=== PATIENT | female | born 1995 | race Caucasian/White ===

== ENCOUNTER 2016-10-18 09:50 | Emergency (ER) | payer BC ==
[2016-10-18] MEDS ORDERED: Amoxicillin/Clavulanate TAB* 875 MG PO ONE (12:48)
[2016-10-18] MEDS ORDERED: Ketorolac INJ* 60 MG/2 ML VIAL IM ONE (12:49)
--- NOTE | 2016-10-18 12:55 | ED ---
Upper Extremity Pain - HPI Summary HPI Summary: Pt here w/ dog bite injury to Rt forearm around 9:00 this morning. Was playing with her 130lb [place] who grabbed her forearm in his moth instead of the stick pt was throwing. She has punture wound on ventral and dorsal sides of arm, worse on ventral aspect. Has pain and swelling/tightness in forearm and numbness in all fingers - moving well but has pain w/ gripping in forearm. Imms are UTD for dog and pt. She has done nothing to wound nor taken anything for pain prior to arrival. Male partner is w/ her and reports he was also bitten by dog. Dog is a rescue and they are discussing returning him for safety reasons. - History of Current Complaint Chief Complaint: EDAnimalBite Stated Complaint: DOG BITE Time Seen by Provider: 10/18/16 10:57 Hx Obtained From: Patient, Family/Front Office Director - male partner - Allergies/Home Medications Allergies/Adverse Reactions: Allergies Allergy/AdvReac Type Severity Reaction Status Date / Time Sulfa Antibiotics Allergy Rash Verified 10/18/16 09:53 PMH/Surg Hx/FS Hx/Imm Hx Previously Healthy: Yes Endocrine/Hematology History: Denies: Hx Anticoagulant Therapy, Hx Blood Disorders, Autoimmune Disease Cardiovascular History: Reports: Hx Hypertension - lisinopril - Immunization History Immunizations Up to Date: Yes Infectious Disease History: No Infectious Disease History: Denies: Hx of Known/Suspected MRSA, Traveled Outside the [place] in Last 30 Days - Family History Known Family History: Positive: Cardiac Disease, Diabetes - Social History Occupation: Employed Full-time - [employer] Lives: With Family Alcohol Use: Occasionally Hx Substance Use: No Substance Use Type: Reports: None Hx Tobacco Use: No Smoking Status (MU): Never Smoked Tobacco Review of Systems Constitutional: Negative Positive: no symptoms reported Musculoskeletal: Other - see HPI Skin: Other - see HPI Neurological: Other - see HPI Psychological: Normal All Other Systems Reviewed And Are Negative: Yes Physical Exam Triage Information Reviewed: Yes Vital Signs On Initial Exam: Initial Vitals Temp Pulse Resp BP Pulse Ox 98.3 F 89 20 149/95 98 10/18/16 09:53 10/18/16 09:53 10/18/16 09:53 10/18/16 09:53 10/18/16 09:53 Vital Signs Reviewed: Yes Appearance: Positive: Well-Appearing, Pain Distress - mild to moderate, Obese Skin: Positive: Warm - punture wounds over Rt forearm (ventral and dorsal aspect ) - other superficial abrasions over dorsal aspect as well; tissue is edematous ; no active bleeding Head/Face: Positive: Normal Head/Face Inspection Eyes: Positive: Normal ENT: Positive: Hearing grossly normal Respiratory/Lung Sounds: Positive: Breath Sounds Present Cardiovascular: Positive: Pulses are Symmetrical in both Upper and Lower Extremities Musculoskeletal: Positive: Strength/ROM Intact, Pain @ - as in HPI Neurological: Positive: Normal, Sensory/Motor Intact - pt can feel gross touch of phalanges, hand and forearm - affected area is TTP, Alert, Oriented to Person Place, Time, CN Intact II-III, Reflexes Intact Psychiatric: Positive: Normal Diagnostics - Vital Signs Vital Signs Temp Pulse Resp BP Pulse Ox 10/18/16 11:15 97.9 F 88 17 135/81 100 10/18/16 09:53 98.3 F 89 20 149/95 98 - Laboratory Diagnostic Studies Comment: radiology report reviewed: no fx, no FB on XR Rt forearm Lab Statement: Any lab studies that have been ordered have been reviewed, and results considered in the medical decision making process. Course/Dx - Diagnoses Provider Diagnoses: Dog bite of right arm Discharge - Discharge Plan Condition: Stable Disposition: HOME Prescriptions: Amoxicillin/Clavulanate TAB* [Augmentin TAB 875*] 875 mg PO BID #19 tab Patient Education Materials: Animal Bite (ED), Contusion in Adults (ED) Forms: *Work Release Referrals: Kiel Mendoza MD [Medical Doctor] - Additional Instructions: Rest, ice, elevate and compress with ZAY wrap Soak arm in soapy water 3-5 x day to allow wounds to remain open, stay clean, drain Complete antibiotics as directed You may take norco as needed for pain - ibuprofen should be avoided as you have high blood pressure and take lisinopril Follow-up with orthopedics in 2-3 days - call today to schedule an appointment. *If you develop severe swelling, redness, purulent drainage, streaking, fever, chills, stiffness of elbow, wrist, fingers, return to ED
--- NOTE | 2016-10-18 13:41 | RAD ---
Indication: Anterior and posterior RIGHT forearm pain following dog bite. Comparison: No relevant prior exams available on the [facility] PACS for comparison. Technique: AP and lateral views RIGHT radius and ulna. Report: Mild dorsal subcutaneous edema. No conspicuous foreign body or subcutaneous emphysema evident. Negative for fracture or malalignment. IMPRESSION: Mild dorsal soft tissue edema without additional finding.
[2016-10-18 15:13] VITALS: BP 132/75
== END 2016-10-18 14:44 | disposition home or self-care (01) ==
LOC: ED 09:50
DX: S51.851A Open bite of right forearm, initial encounter (principal); W54.0XXA Bitten by dog, initial encounter; Y92.9 Unspecified place or not applicable; I10 Essential (primary) hypertension
CPT/HCPCS: 96372; 99282; A9270-GY; J1885

== ENCOUNTER → 2016-12-18 14:04 | Emergency (ER) | payer BC ==
[~2016-12-18 14:04] MED LIST: Amoxicillin/Clavulanate TAB* 875 MG PO ONE; NS 0.9% 1000 ML* 1,000 ML IV SCH
[2016-12-18 15:01] LABS: Hematocrit 42 % (35-47); Hemoglobin 14.3 g/dl (12.0-16.0); Mean Corpuscular HGB Conc 34 g/dl (31-36); Mean Corpuscular Hemoglobin 28 pg (27-31); Mean Corpuscular Volume 83 fL (80-97); Mean Platelet Volume 7 um3 (7.4-10.4); Red Blood Count 5.09 10^6/ul (4.0-5.4); Red Cell Distribution Width 14 % (10.5-15); White Blood Count 18.6 10^3/ul (3.5-10.8)
[2016-12-18 15:06] LABS: Add Diff/Slide Review? Slide Review Added; Comments Flag Yes
[2016-12-18 15:23] LABS: ALT 10 U/L (7-52); AST 13 U/L (13-39); Albumin 4.1 g/dL (3.2-5.2); Alkaline Phosphatase 63 U/L (34-104); Anion Gap 9 mmol/L (2-11); BUN/Creatinine Ratio 13.6 (8-20); Blood Urea Nitrogen 9 mg/dL (6-24); C Reactive Protein 45.54 mg/L (< 5.00); CO2 Carbon Dioxide 23 mmol/L (22-32); Calcium 9.8 mg/dL (8.6-10.3); Chloride 102 mmol/L (101-111); EGFR African American 142.7 (>60); Globulin 4.1 g/dL (2-4); Glucose 90 mg/dL (70-100); Lipase 16 U/L (11.0-82.0); Potassium 3.5 mmol/L (3.5-5.0); Sodium 134 mmol/L (133-145); Total Protein 8.2 g/dL (6.4-8.9)
--- NOTE | 2016-12-18 16:36 | RAD ---
HISTORY: Productive cough COMPARISONS: None VIEWS: 4: Frontal dual-energy and lateral views of the chest. FINDINGS: CARDIOMEDIASTINAL SILHOUETTE: The cardiomediastinal silhouette is normal. GUILLAUME: The guillaume are normal. PLEURA: The costophrenic angles are sharp. No pleural abnormalities are noted. LUNG PARENCHYMA: The lungs are clear. ABDOMEN: The upper abdomen is clear. There is no subphrenic gas. BONES AND SOFT TISSUES: No bone or soft tissue abnormalities are noted. OTHER: None. IMPRESSION: NO ACTIVE CARDIOPULMONARY DISEASE.
[2016-12-18 17:21] VITALS: BP 107/55
--- NOTE | 2016-12-18 18:55 | ED ---
Frandy Lugo Angela, scribed for Kimo Clark MD on 12/18/16 at 1615 . Complex/Multi-Sys Presentation - HPI Summary HPI Summary: This pt is a 21 y/o female presenting to [facility] c/o sudden onset of sore throat, cough, runny nose, nose congestion, and post nasal drip since yesterday. Pt additionally c/o fever, chills, nausea and vomiting today. She describes her cough as productive. She denies SOB, abd pain, chest pain. Pt notes that she took Nyquil yesterday with no relief. PMHx includes asthma and HTN. - History Of Current Complaint Chief Complaint: EDGeneral Time Seen by Provider: 12/18/16 16:03 Hx Obtained From: Patient Onset/Duration: Sudden Onset, Lasting Days - 1 Timing: Days - 1 Associated Signs And Symptoms: Positive: Cough - productive, Nausea, Vomiting, Fever, Other - runny nose, sore throat, nose congestion, post nasal drip.. Negative: Chest Pain, Abdominal Pain - Allergies/Home Medications Allergies/Adverse Reactions: Allergies Allergy/AdvReac Type Severity Reaction Status Date / Time Sulfa Antibiotics Allergy Rash Verified 10/18/16 09:53 PMH/Surg Hx/FS Hx/Imm Hx Endocrine/Hematology History: Denies: Hx Anticoagulant Therapy, Hx Blood Disorders Cardiovascular History: Reports: Hx Hypertension - lisinopril Infectious Disease History: No Infectious Disease History: Denies: Hx of Known/Suspected MRSA, Traveled Outside the US in Last 30 Days - Family History Known Family History: Positive: Cardiac Disease, Diabetes - Social History Alcohol Use: Occasionally Hx Substance Use: No Substance Use Type: Reports: None Hx Tobacco Use: No Smoking Status (MU): Never Smoked Tobacco Review of Systems Positive: Fever, Chills Positive: Sore Throat, Other - runny nose, nose congestion, post nasal drip Positive: Cough - productive. Negative: Shortness Of Breath Positive: Vomiting, Nausea. Negative: Abdominal Pain All Other Systems Reviewed And Are Negative: Yes Physical Exam - Summary Physical Exam Summary: VITAL SIGNS: Reviewed. GENERAL: Patient is a morbidly obese female who is lying comfortable in the stretcher. Patient is not in any acute respiratory distress. HEAD AND FACE: No signs of trauma. No ecchymosis, hematomas or skull depressions. There is sinus tenderness, nasal congestion. EYES: PERRLA, EOMI x 2, No injected conjunctiva, no nystagmus. EARS: Hearing grossly intact. Ear canals and tympanic membranes are within normal limits. MOUTH: Oropharynx within normal limits. NECK: Supple, trachea is midline, no adenopathy, no JVD, no carotid bruit, no c- spine tenderness, neck with full ROM. CHEST: Symmetric, no tenderness at palpation LUNGS: There are coarse breath sounds bilaterally. CVS: Regular rate and rhythm, S1 and S2 present, no murmurs or gallops appreciated. ABDOMEN: Soft, non-tender. No signs of distention. No rebound no guarding, and no masses palpated. Bowel sounds are normal. EXTREMITIES: FROM in all major joints, no edema, no cyanosis or clubbing. NEURO: Alert and oriented x 3. No acute neurological deficits. Speech is normal and follows commands. SKIN: Dry and warm Triage Information Reviewed: Yes Vital Signs On Initial Exam: Initial Vitals Temp Pulse Resp BP Pulse Ox 98.4 F 119 20 155/103 97 12/18/16 14:05 12/18/16 14:05 12/18/16 14:05 12/18/16 14:05 12/18/16 14:05 Vital Signs Reviewed: Yes - Maura Coma Scale Coma Scale Total: 15 Diagnostics - Vital Signs Vital Signs Temp Pulse Resp BP Pulse Ox 12/18/16 14:30 121 140/91 96 12/18/16 14:05 98.4 F 119 20 155/103 97 - Laboratory Lab Results: Lab Results 12/18/16 12/18/16 12/18/16 Range/Units 14:46 14:46 14:46 WBC 18.6 H (3.5-10.8) 10^3/ul RBC 5.09 (4.0-5.4) 10^6/ul Hgb 14.3 (12.0-16.0) g/dl Hct 42 (35-47) % MCV 83 (80-97) fL MCH 28 (27-31) pg MCHC 34 (31-36) g/dl RDW 14 (10.5-15) % Plt Count 321 (150-450) 10^3/ul MPV 7 L (7.4-10.4) um3 Neut % (Auto) 82.8 (38-83) % Lymph % (Auto) 7.6 L (25-47) % [place] % (Auto) 8.9 (1-9) % Eos % (Auto) 0.4 (0-6) % Baso % (Auto) 0.3 (0-2) % Absolute Neuts (auto) 15.4 H (1.5-7.7) 10^3/ul Absolute Lymphs (auto) 1.4 (1.0-4.8) 10^3/ul Absolute Monos (auto) 1.7 H (0-0.8) 10^3/ul Absolute Eos (auto) 0.1 (0-0.6) 10^3/ul Absolute Basos (auto) 0.1 (0-0.2) 10^3/ul Absolute Nucleated RBC 0.01 10^3/ul Nucleated RBC % 0 APTT 29.3 (26.0-36.3) seconds Sodium 134 (133-145) mmol/L Potassium 3.5 (3.5-5.0) mmol/L Chloride 102 (101-111) mmol/L Carbon Dioxide 23 (22-32) mmol/L Anion Gap 9 (2-11) mmol/L BUN 9 (6-24) mg/dL Creatinine 0.66 (0.51-0.95) mg/dL Est GFR ( Amer) 142.7 (>60) Est GFR (Non-Af Amer) 111.0 (>60) BUN/Creatinine Ratio 13.6 (8-20) Glucose 90 (70-100) mg/dL Lactic Acid (0.5-2.0) mmol/L Calcium 9.8 (8.6-10.3) mg/dL Total Bilirubin 0.50 (0.2-1.0) mg/dL AST 13 (13-39) U/L ALT 10 (7-52) U/L Alkaline Phosphatase 63 (34-104) U/L C-Reactive Protein 45.54 H (< 5.00) mg/L Total Protein 8.2 (6.4-8.9) g/dL Albumin 4.1 (3.2-5.2) g/dL Globulin 4.1 H (2-4) g/dL Albumin/Globulin Ratio 1.0 (1-3) Lipase 16 (11.0-82.0) U/L Beta HCG, Quant < 0.60 mIU/mL 12/18/16 Range/Units 14:46 WBC (3.5-10.8) 10^3/ul RBC (4.0-5.4) 10^6/ul Hgb (12.0-16.0) g/dl Hct (35-47) % MCV (80-97) fL MCH (27-31) pg MCHC (31-36) g/dl RDW (10.5-15) % Plt Count (150-450) 10^3/ul MPV (7.4-10.4) um3 Neut % (Auto) (38-83) % Lymph % (Auto) (25-47) % [place] % (Auto) (1-9) % Eos % (Auto) (0-6) % Baso % (Auto) (0-2) % Absolute Neuts (auto) (1.5-7.7) 10^3/ul Absolute Lymphs (auto) (1.0-4.8) 10^3/ul Absolute Monos (auto) (0-0.8) 10^3/ul Absolute Eos (auto) (0-0.6) 10^3/ul Absolute Basos (auto) (0-0.2) 10^3/ul Absolute Nucleated RBC 10^3/ul Nucleated RBC % APTT (26.0-36.3) seconds Sodium (133-145) mmol/L Potassium (3.5-5.0) mmol/L Chloride (101-111) mmol/L Carbon Dioxide (22-32) mmol/L Anion Gap (2-11) mmol/L BUN (6-24) mg/dL Creatinine (0.51-0.95) mg/dL Est GFR ( Amer) (>60) Est GFR (Non-Af Amer) (>60) BUN/Creatinine Ratio (8-20) Glucose (70-100) mg/dL Lactic Acid 0.9 (0.5-2.0) mmol/L Calcium (8.6-10.3) mg/dL Total Bilirubin (0.2-1.0) mg/dL AST (13-39) U/L ALT (7-52) U/L Alkaline Phosphatase (34-104) U/L C-Reactive Protein (< 5.00) mg/L Total Protein (6.4-8.9) g/dL Albumin (3.2-5.2) g/dL Globulin (2-4) g/dL Albumin/Globulin Ratio (1-3) Lipase (11.0-82.0) U/L Beta HCG, Quant mIU/mL Result Diagrams: 12/18/16 14:46 12/18/16 14:46 Lab Statement: Any lab studies that have been ordered have been reviewed, and results considered in the medical decision making process. - Radiology Chest XR Xray Interpretation: No Acute Changes - IMPRESSION: No active cardiopulmonary disease. ED physician has reviewed this radiology report and agrees. Radiology Interpretation Completed By: Radiologist Re-Evaluation - Re-Evaluation First Eval Re-Evaluation Time: 16:52 Comment: I discussed the lab and XR results with the pt. Complex Multi-Symp Course/Dx Assessment/Plan: This pt is a 21 y/o female presenting to [facility] c/o sudden onset of sore throat, cough, runny nose, nose congestion, and post nasal drip since yesterday. Pt additionally c/o fever, chills, nausea and vomiting today. She describes her cough as productive. She denies SOB, abd pain, chest pain. Pt notes that she took Nyquil yesterday with no relief. PMHx includes asthma and HTN. Test results show WBC of 18.6, CRP of 45.4. Influenza A and B, and rapid strep test is negative. The pt seems to have a lot of post nasal drip and nasal congestion. Therefore, I believe the pt has an acute sinusitis. She will be given a prescription for Augmentin for 10 days. She already has Flonase and will start using it. Pt is hemodynamically stable, alert and oriented x3. - Diagnoses Differential Diagnoses/HQI/PQRI: Other - URI, Asthma, bronchitis, Sinusitis Provider Diagnoses: Acute sinusitis Discharge - Discharge Plan Condition: Stable Disposition: HOME Prescriptions: Amoxicillin/Clavulanate TAB* [Augmentin TAB 875*] 875 mg PO BID #19 tab Patient Education Materials: Sinusitis (ED) Referrals: Sahil Bradford MD [Primary Care Provider] - Additional Instructions: Please follow up with your primary care provider. RETURN TO THE ED FOR ANY WORSENING SYMPTOMS. The documentation as recorded by the Frandy russell Angela accurately reflects the service I personally performed and the decisions made by me, Kimo Clark MD.
== END | disposition home or self-care (01) ==
LOC: ED 14:04
DX: J01.90 Acute sinusitis, unspecified (principal); R05 Cough; R11.2 Nausea with vomiting, unspecified; J02.9 Acute pharyngitis, unspecified
CPT/HCPCS: 36415; 71020; 80053; 83605; 83690; 84702; 85025; 85730; 86140; 87502; 87651; 99283; A9270-GY

== ENCOUNTER 2017-05-03 14:05 | Emergency (ER) | payer BC ==
[2017-05-03 16:30] LABS: ABS Basophils 0.1 10^3/ul (0-0.2); ABS Eosinophils 0.1 10^3/ul (0-0.6); ABS Lymphocytes 1.9 10^3/ul (1.0-4.8); ABS Monocytes 1.2 10^3/ul (0-0.8); ABS Neutrophils 16.1 10^3/ul (1.5-7.7); ABS Nucleated RBC 0 10^3/ul; Eosinophil % 0.5 % (0-6); Hematocrit 41 % (35-47); Hemoglobin 13.9 g/dl (12.0-16.0); Lymphocyte % 9.7 % (25-47); Mean Corpuscular HGB Conc 34 g/dl (31-36); Mean Corpuscular Hemoglobin 28 pg (27-31); Mean Corpuscular Volume 83 fL (80-97); Mean Platelet Volume 7 um3 (7.4-10.4); Nucleated Red Blood Cells % 0.2; Platelet Count 342 10^3/ul (150-450); Red Blood Count 4.95 10^6/ul (4.0-5.4); Red Cell Distribution Width 15 % (10.5-15); White Blood Count 19.3 10^3/ul (3.5-10.8)
[2017-05-03] MEDS ORDERED: Acetaminophen TAB* 325 MG PO ONE (16:30)
[2017-05-03] MEDS ORDERED: oxyCODONE TAB* 5 MG TAB PO ONE (18:01)
--- NOTE | 2017-05-03 18:42 | RAD ---
INDICATION: Left flank abdominal pain. COMPARISON: There are no prior studies available for comparison. TECHNIQUE: A CT scan of the abdomen and pelvis was performed without intravenous or oral contrast. Contiguous axial sections were obtained from the lung bases through the symphysis pubis. Images were reconstructed in the coronal and sagittal planes. FINDINGS: There is mild atelectasis in the right middle lobe. No pleural effusion is present. The liver and spleen are normal in size. The liver is mildly decreased in density consistent with fatty infiltration. No calcified gallstones are seen. The pancreas appears to be within normal limits. The adrenal glands and kidneys are normal in size. No renal calculi or hydronephrosis is seen. No ureteral or bladder calculi are seen. The aorta is normal in caliber without significant calcific plaque. No significant enlarged retroperitoneal lymph nodes are seen. The stomach, small and large bowel appear nondistended. The appendix is within normal limits. There are scattered diverticuli within the colon which are moderate in degree in the descending and sigmoid colon. There is mild interstitial stranding adjacent to the proximal sigmoid colon. No colon wall thickening is seen. This is a nonspecific finding although suggestive of epiploic appendagitis . There is a small periumbilical hernia containing fat. No significant focal osseous abnormality is seen. IMPRESSION: FINDINGS SUGGESTIVE OF EPIPLOIC APPENDAGITIS ADJACENT TO THE PROXIMAL SIGMOID COLON MUCH LESS LIKELY DIVERTICULITIS.
[2017-05-03 20:05] VITALS: BP 120/71
--- NOTE | 2017-05-03 20:16 | ED ---
Cari Lugo Julia, scribed for Juan Pearl MD on 05/03/17 at 1628 . HPI Chest Pain - HPI Summary HPI Summary: This patient is a 21 year old F presenting to [facility] with a chief complaint of left chest spasms beginning this morning. Patient reports left sided abdominal pain for the past four days with increased BM frequency. Patient denies SOB, diarrhea, and urinary symptoms. The patient rates the pain 8/10 in severity. Symptoms aggravated by deep breaths. Patient reports similar symptoms a couple months ago. - History of Current Complaint Chief Complaint: EDChestPainROMI Time Seen by Provider: 05/03/17 16:14 Hx Obtained From: Patient Onset/Duration: Started Hours Ago Timing: Constant Pain Intensity: 8 Pain Scale Used: 0-10 Numeric Chest Pain Location: Left Anterior Character: Other: - "spasms" Associated Signs and Symptoms: Positive: Abdominal Pain - with BM frequency, Other: - negative diarrhea and urinary symptoms. Negative: Shortness of Breath - Allergy/Home Medications Allergies/Adverse Reactions: Allergies Allergy/AdvReac Type Severity Reaction Status Date / Time Sulfa (Sulfonamide Allergy Rash And Verified 05/03/17 16:22 Antibiotics) Itching PMH/Surg Hx/FS Hx/Imm Hx Endocrine/Hematology History: Denies: Hx Anticoagulant Therapy, Hx Blood Disorders Cardiovascular History: Reports: Hx Hypertension - lisinopril Respiratory History: Reports: Hx Asthma Infectious Disease History: No Infectious Disease History: Denies: Hx of Known/Suspected MRSA, Traveled Outside the [place] in Last 30 Days - Family History Known Family History: Positive: Cardiac Disease, Diabetes, Other - "heart aneurysm" - sister - Social History Alcohol Use: Occasionally Hx Substance Use: No Substance Use Type: Reports: None Hx Tobacco Use: No Smoking Status (MU): Never Smoked Tobacco Review of Systems Positive: Chest Pain Negative: Shortness Of Breath Positive: Other - increased BM frequency. Negative: Diarrhea Positive: no symptoms reported All Other Systems Reviewed And Are Negative: Yes Physical Exam - Summary Physical Exam Summary: Appearance: The patient is well-nourished in no acute distress and in no acute pain. Skin: The skin is warm and dry and skin color reflects adequate perfusion. HEENT: The head is normocephalic and atraumatic. The pupils are equal and reactive. The conjunctivae are clear and without drainage. Nares are patent and without drainage. Mouth reveals moist mucous membranes and the throat is without erythema and exudate. The external ears are intact. The ear canals are patent and without drainage. The tympanic membranes are intact. Neck: the neck is supple with full range of motion and non-tender. There are no carotid bruits. There is no neck vein distension. Respiratory: Chest is non-tender. Lungs are clear to auscultation and breath sounds are symmetrical and equal. Cardiovascular: Heart is regular rate and rhythm. There is no murmur or rub auscultated. There is no peripheral edema and pulses are symmetrical and equal. Abdomen: The abdomen is soft with LUQ and LLQ tenderness. There are normal bowel sounds heard in all four quadrants and there is no organomegaly palpated. Musculoskeletal: There is no back tenderness noted. Extremities are non-tender with full range of motion. There is good capillary refill. There is no peripheral edema or calf tenderness elicited. Neurological: Patient is alert and oriented to person, place and time. The patient has symmetrical motor strength in all four extremities. Cranial nerves are grossly intact. Deep tendon reflexes are symmetrical and equal in all four extremities. Psychiatric: The patient has an appropriate affect and does not exhibit any anxiety or depression. Triage Information Reviewed: Yes Vital Signs On Initial Exam: Initial Vitals Temp Pulse Resp BP Pulse Ox 98.4 F 118 20 150/93 99 05/03/17 14:08 05/03/17 14:08 05/03/17 14:08 05/03/17 14:08 05/03/17 14:08 Vital Signs Reviewed: Yes Diagnostics - Vital Signs Vital Signs Temp Pulse Resp BP Pulse Ox 05/03/17 14:08 98.4 F 118 20 150/93 99 - Laboratory Lab Results: Lab Results 05/03/17 05/03/17 05/03/17 Range/Units 16:15 16:15 16:15 WBC 19.3 H (3.5-10.8) 10^3/ul RBC 4.95 (4.0-5.4) 10^6/ul Hgb 13.9 (12.0-16.0) g/dl Hct 41 (35-47) % MCV 83 (80-97) fL MCH 28 (27-31) pg MCHC 34 (31-36) g/dl RDW 15 (10.5-15) % Plt Count 342 (150-450) 10^3/ul MPV 7 L (7.4-10.4) um3 Neut % (Auto) 83.3 H (38-83) % Lymph % (Auto) 9.7 L (25-47) % [place] % (Auto) 6.1 (0-7) % Eos % (Auto) 0.5 (0-6) % Baso % (Auto) 0.4 (0-2) % Absolute Neuts (auto) 16.1 H (1.5-7.7) 10^3/ul Absolute Lymphs (auto) 1.9 (1.0-4.8) 10^3/ul Absolute Monos (auto) 1.2 H (0-0.8) 10^3/ul Absolute Eos (auto) 0.1 (0-0.6) 10^3/ul Absolute Basos (auto) 0.1 (0-0.2) 10^3/ul Absolute Nucleated RBC 0 10^3/ul Nucleated RBC % 0.2 Sodium 134 (133-145) mmol/L Potassium 3.5 (3.5-5.0) mmol/L Chloride 100 L (101-111) mmol/L Carbon Dioxide 25 (22-32) mmol/L Anion Gap 9 (2-11) mmol/L BUN 12 (6-24) mg/dL Creatinine 0.66 (0.51-0.95) mg/dL Est GFR ( Amer) 142.7 (>60) Est GFR (Non-Af Amer) 111.0 (>60) BUN/Creatinine Ratio 18.2 (8-20) Glucose 86 (70-100) mg/dL Lactic Acid 0.8 (0.5-2.0) mmol/L Calcium 10.0 (8.6-10.3) mg/dL Total Bilirubin 0.30 (0.2-1.0) mg/dL AST 10 L (13-39) U/L ALT 9 (7-52) U/L Alkaline Phosphatase 65 (34-104) U/L Troponin I 0.00 (<0.04) ng/mL Total Protein 8.2 (6.4-8.9) g/dL Albumin 4.1 (3.2-5.2) g/dL Globulin 4.1 H (2-4) g/dL Albumin/Globulin Ratio 1.0 (1-3) Beta HCG, Quant < 0.60 mIU/mL Result Diagrams: 05/03/17 16:15 05/03/17 16:15 Lab Statement: Any lab studies that have been ordered have been reviewed, and results considered in the medical decision making process. - CT A/P CT Interpretation Completed By: Radiologist - FINDINGS SUGGESTIVE OF EPIPLOIC APPENDAGITIS ADJACENT TO THE PROXIMAL SIGMOID COLON MUCH LESS LIKELY DIVERTICULITIS. ED Physician has reviewd this report. - EKG 1414 Cardiac Rate: Tachycardia - at 116 BPM EKG Rhythm: Sinus Rhythm Chest Pain Course/Dx - Course Course Of Treatment: Ms. Mathew presented with abdominal pain of a couple days duration. She was treated symptomatically and was found to have a significant leukocytosis. A CT was obtained and showed epiploic appendagitis. I will treat her symptomatically. - Diagnoses Provider Diagnoses: Epiploic appendagitis Discharge - Discharge Plan Condition: Stable Disposition: HOME Prescriptions: HYDROcodone/ACETAMIN 5-325 MG* [Elliston 5-325 TAB*] 1 tab PO Q6H PRN #20 tab MDD 4 PRN Reason: Pain Patient Education Materials: Acute Abdominal Pain (ED) Referrals: Sahil Bradford MD [Primary Care Provider] - Additional Instructions: Epiploic appendagitis Epiploic appendagitis (also known as appendicitis epiploica, hemorrhagic epiploitis, epiplopericolitis, or appendagitis) is a benign and self-limited condition of the epiploic appendages. Patients with epiploic appendagitis most commonly present with acute or subacute onset of lower abdominal pain. The pain is on the left side in 60 to 80 percent of patients, but has also been reported in the right lower quadrant. (See " Epiploic appendagitis".) The documentation as recorded by the Cari russell Julia accurately reflects the service I personally performed and the decisions made by me, Juan Pearl MD.
--- NOTE | 2017-05-04 17:02 | ED ---
Progress - Progress Note Progress Note: ED MD NOTE AFTER DISCHARGE: Pt needs an urgent RX pharmacy, so [facility] RX is cancelled by me with Laz, the pharmacist at [facility], and RX for hydrocodone #20 is sent to [facility] in [place]. Raphael MACK MD 05/04/17 1710pm. Course/Dx - Course Course Of Treatment: Ms. Mathew presented with abdominal pain of a couple days duration. She was treated symptomatically and was found to have a significant leukocytosis. A CT was obtained and showed epiploic appendagitis. I will treat her symptomatically. - Diagnoses Provider Diagnoses: Epiploic appendagitis
== END 2017-05-03 20:12 | disposition home or self-care (01) ==
LOC: ED 14:05
DX: K63.89 Other specified diseases of intestine (principal); R07.9 Chest pain, unspecified; Z86.79 Personal history of other diseases of the circulatory system
CPT/HCPCS: 36415; 74176; 80053; 83605; 84484; 84702; 85025; 93005; 99283; A9270-GY

== ENCOUNTER 2018-02-14 21:54 | Emergency (ER) | payer BC ==
[2018-02-14 22:08] VITALS: BP 144/87
--- NOTE | 2018-02-14 22:48 | ED ---
Throat Pain/Nasal Congestion - HPI Summary HPI Summary: This patient is a 22 year old F presenting to [facility] accompanied by a male with a chief complaint of swelling, numbness, and tingling of her lips and mouth since a few hours ago. Patient denies SOB or difficulty breathing. The patient was out shopping when her symptoms spontaneously occurred. She last ate after her symptoms appeared. She takes Lisinopril intermittently to treat her HTN. She has been on this medication for two years. PMHX asthma, HTN. RX albuterol inhaler, Lisinopril. - History of Current Complaint Chief Complaint: EDAllergicReaction Time Seen by Provider: 02/14/18 22:39 Hx Obtained From: Patient Onset/Duration: Sudden Onset, Lasting Hours Severity: Mild - Allergies/Home Medications Allergies/Adverse Reactions: Allergies Allergy/AdvReac Type Severity Reaction Status Date / Time Sulfa (Sulfonamide Allergy Rash And Verified 05/03/17 16:22 Antibiotics) Itching PMH/Surg Hx/FS Hx/Imm Hx Endocrine/Hematology History: Denies: Hx Anticoagulant Therapy, Hx Blood Disorders Cardiovascular History: Reports: Hx Hypertension - lisinopril Respiratory History: Reports: Hx Asthma Infectious Disease History: No Infectious Disease History: Denies: Hx of Known/Suspected MRSA, Traveled Outside the [place] in Last 30 Days - Family History Known Family History: Positive: Cardiac Disease, Diabetes, Other - "heart aneurysm" - sister - Social History Lives: With Family Alcohol Use: Occasionally Hx Substance Use: No Substance Use Type: Reports: None Hx Tobacco Use: No Smoking Status (MU): Never Smoked Tobacco Review of Systems Negative: Shortness Of Breath Positive: Edema - lips Positive: Numbness - lips, tingling All Other Systems Reviewed And Are Negative: Yes Physical Exam - Summary Physical Exam Summary: Appearance: Well-appearing, Well-nourished, lying in bed comfortable Skin: Warm, dry, no obvious rash Eyes: sclera anicteric, no conjunctival pallor ENT: mucous membranes moist. Mild swelling of right upper lip. No swelling of the tongue or pharynx. Neck: deferred Respiratory: No signs of respiratory distress Cardiovascular: Appears well perfused, pulses are nml Abdomen: deferred Musculoskeletal: Moving all 4 extremities without obvious discomfort Neurological: Awake and alert, mentation is normal, speech is fluent and appropriate Psychiatric: affect is normal, does not appear anxious or depressed Triage Information Reviewed: Yes Vital Signs On Initial Exam: Initial Vitals Temp Pulse Resp BP Pulse Ox 98.6 F 101 18 144/87 97 02/14/18 22:03 02/14/18 22:03 02/14/18 22:03 02/14/18 22:03 02/14/18 22:03 Vital Signs Reviewed: Yes Diagnostics - Vital Signs Vital Signs Temp Pulse Resp BP Pulse Ox 02/14/18 22:03 98.6 F 101 18 144/87 97 - Laboratory Lab Statement: Any lab studies that have been ordered have been reviewed, and results considered in the medical decision making process. EENT Course/Dx - Course Course Of Treatment: This patient is a 22 year old F presenting to [facility] accompanied by a male with a chief complaint of swelling, numbness, and tingling of her lips and mouth since a few hours ago. Patient denies SOB or difficulty breathing. The patient was out shopping when her symptoms spontaneously occurred. She last ate after her symptoms appeared. She takes Lisinopril intermittently to treat her HTN. She has been on this medication for two years. Patient will be discharged with follow up from Dr. Rodriges. The patient is agreeable with this plan. - Diagnoses Provider Diagnoses: Angioedema Discharge - Sign-Out/Discharge Documenting (check all that apply): Patient Departure - discharge - Discharge Plan Condition: Stable Disposition: HOME Patient Education Materials: Angioedema (ED) Referrals: Carli Rodriges MD [Primary Care Provider] - Additional Instructions: This is a reaction to lisinopril. You cannot take lisinopril or any other medication in that family of blood pressure medications going forward. Your symptoms should resolve over the next 12-24 hours as the lisinopril leaves her system. Occasionally it may last a few days. - Billing Disposition and Condition Condition: STABLE Disposition: Home - Attestation Statements Document Initiated by Scribe: Yes Documenting Scribe: Rico Trujillo Provider For Whom Marce is Documenting (Include Credential): Juan Sawyer MD Scribe Attestation: Rico Lugo, scribed for Juan Sawyer MD on 02/15/18 at 0210. Scribe Documentation Reviewed: Yes Provider Attestation: The documentation as recorded by the Rico russell accurately reflects the service I personally performed and the decisions made by me, Juan Sawyer MD Status of Scribe Document: Viewed
== END 2018-02-14 23:03 | disposition home or self-care (01) ==
LOC: ED 21:54
DX: T78.3XXA Angioneurotic edema, initial encounter (principal); I10 Essential (primary) hypertension; J45.909 Unspecified asthma, uncomplicated; Z88.2 Allergy status to sulfonamides
CPT/HCPCS: 99282